=== PATIENT | female | born 1980 | race Caucasian/White ===

== ENCOUNTER 2021-07-14 11:11 | Inpatient (IN) | payer OTHER ==
[2021-07-14] MEDS ORDERED: ACETAMINOPHEN 325 MG TABLET (FP) PO PRN ×2 (12:09)
[2021-07-14] MEDS ORDERED: chlordiazePOXIDE HCL 25 MG CAPSULE PO PRN (12:09)
[2021-07-14] MEDS ORDERED: DICYCLOMINE HCL 10 MG CAPSULE PO PRN (12:09)
[2021-07-14] MEDS ORDERED: IBUPROFEN 400 MG TABLET (FP) PO PRN (12:09)
[2021-07-14] MEDS ORDERED: MAGNESIUM CITRATE 300 ML BOTTLE PO PRN (12:09)
[2021-07-14] MEDS ORDERED: MAG HYDROX/AL HYDROX/SIMETH 30 ML UNIT-DOSE CUP PO PRN (12:09)
[2021-07-14] MEDS ORDERED: LOPERAMIDE HCL 2 MG CAPSULE PO PRN (12:09)
[2021-07-14] MEDS ORDERED: BENZOCAINE/MENTHOL (CHLORASEPTIC ) LOZENGE MM PRN (12:09)
[2021-07-14] MEDS ORDERED: NICOTINE 10 MG CARTRIDGE (INHALER) IH PRN (12:09)
[2021-07-14] MEDS ORDERED: ONDANSETRON *ODT* 4 MG TABLET SL PRN (12:09)
[2021-07-14] MEDS ORDERED: MAGNESIUM HYDROX 2400MG/30ML ORAL SUSPENSION 30 ML CUP PO PRN (12:09)
[2021-07-14] MEDS ORDERED: BISMUTH SUBSALICYLATE 524 MG/30 ML PO PRN (12:09)
[2021-07-14 13:38] VITALS: BMI 40.7
[2021-07-14] MEDS: NICOTINE 21 MG/24 HOURS TOPICAL PATCH TD SCH (14:42)
[2021-07-14] MEDS: hydrOXYzine PAMOATE 25 MG CAPSULE (FP) PO SCH ×3 (14:45→22:28)
[2021-07-14] MEDS: PRENATAL VITAMINS W/ FOLIC ACID TABLET (FP) PO SCH (14:49)
[2021-07-14] MEDS: chlordiazePOXIDE HCL 25 MG CAPSULE PO SCH ×2 (17:34→22:38)
[2021-07-14 19:39] LABS: ALBUMIN 3.5 g/dl (3.4-5.0); BLOOD UREA NITROGEN 8.3 mg/dL (7-18); CALCIUM 8.9 mg/dL (8.5-10.1)
[2021-07-14 19:43] LABS: HEMATOCRIT 39.1 % (32.4-45.2); HEMOGLOBIN 12.7 GM/dL (10.7-15.3); MCH 26.8 pg (25.7-33.7); MCHC 32.4 g/dl (32.0-36.0); MEAN CELL VOLUME 82.7 fl (80-96); MEAN PLT VOLUME 8.6 fl (7.5-11.1); PLATELET COUNT 274 10^3/uL (134-434); RBC 4.72 M/mm3 (3.60-5.2); RDW 15.4 % (11.6-15.6); WHITE BLOOD COUNT 8.1 K/mm3 (4.0-10.0)
[2021-07-14 19:44] LABS: BILIRUBIN,TOTAL 0.4 mg/dL (0.2-1)
[2021-07-14 19:45] LABS: TOT PROT 6.9 g/dl (6.4-8.2)
[2021-07-14] MEDS: MELATONIN 5 MG TABLETS PO SCH (22:28)
[2021-07-14] MEDS: THIAMINE HCL 100 MG TABLET (FP) PO SCH (22:28)
[2021-07-15] MEDS: chlordiazePOXIDE HCL 25 MG CAPSULE PO SCH ×4 (06:30→22:12)
[2021-07-15] MEDS: hydrOXYzine PAMOATE 25 MG CAPSULE (FP) PO SCH ×5 (06:30→22:12)
[2021-07-15] MEDS: PRENATAL VITAMINS W/ FOLIC ACID TABLET (FP) PO SCH (11:47)
[2021-07-15] MEDS: NICOTINE 21 MG/24 HOURS TOPICAL PATCH TD SCH (11:47)
[2021-07-15] MEDS: QUEtiapine FUMARATE 50 MG TABLET PO SCH ×2 (14:02→22:12)
[2021-07-15] MEDS ORDERED: POTASSIUM CHLORIDE ORAL LIQUID 20 MEQ/15 ML PO ONE (19:38)
[2021-07-15] MEDS: MELATONIN 5 MG TABLETS PO SCH (22:12)
[2021-07-15] MEDS: THIAMINE HCL 100 MG TABLET (FP) PO SCH (22:12)
[2021-07-15] MEDS: POTASSIUM CHLORIDE ORAL LIQUID 20 MEQ/15 ML PO SCH (23:52)
[2021-07-16] MEDS: chlordiazePOXIDE HCL 25 MG CAPSULE PO SCH ×4 (07:27→22:58)
[2021-07-16] MEDS: hydrOXYzine PAMOATE 25 MG CAPSULE (FP) PO SCH ×5 (07:27→22:34)
[2021-07-16 08:09] LABS: SARS-CoV-2 NAA Not Detected (Not Detected)
[2021-07-16] MEDS: QUEtiapine FUMARATE 50 MG TABLET PO SCH ×2 (10:49→22:34)
[2021-07-16] MEDS: SERTRALINE HCL 50 MG TABLET (FP) PO SCH (10:49)
[2021-07-16] MEDS: PRENATAL VITAMINS W/ FOLIC ACID TABLET (FP) PO SCH (10:49)
[2021-07-16] MEDS: POTASSIUM CHLORIDE ORAL LIQUID 20 MEQ/15 ML PO SCH ×2 (10:52→22:33)
[2021-07-16] MEDS: NICOTINE 21 MG/24 HOURS TOPICAL PATCH TD SCH (10:52)
[2021-07-16] MEDS ORDERED: BENZOCAINE 20 % GEL TUBE MM PRN (14:30)
[2021-07-16] MEDS: METHOCARBAMOL 500 MG TABLET PO PRN (22:34)
[2021-07-16] MEDS: MELATONIN 5 MG TABLETS PO SCH (22:34)
[2021-07-16] MEDS: THIAMINE HCL 100 MG TABLET (FP) PO SCH (22:34)
[2021-07-17] MEDS ORDERED: chlordiazePOXIDE HCL 10 MG CAPSULE PO PRN
[2021-07-17] MEDS: hydrOXYzine PAMOATE 25 MG CAPSULE (FP) PO SCH ×2 (06:35→10:31)
[2021-07-17] MEDS: chlordiazePOXIDE HCL 10 MG CAPSULE PO SCH ×2 (06:36→10:33)
[2021-07-17] MEDS: METHOCARBAMOL 500 MG TABLET PO PRN (06:38)
[2021-07-17 08:47] VITALS: TEMP 98
[2021-07-17] MEDS: SERTRALINE HCL 50 MG TABLET (FP) PO SCH (10:31)
[2021-07-17] MEDS: QUEtiapine FUMARATE 50 MG TABLET PO SCH (10:31)
[2021-07-17] MEDS: PRENATAL VITAMINS W/ FOLIC ACID TABLET (FP) PO SCH (10:31)
[2021-07-17] MEDS: NICOTINE 21 MG/24 HOURS TOPICAL PATCH TD SCH (10:32)
[2021-07-17 10:41] VITALS: BP 111/82; PULSE 95
[2021-07-18] MEDS ORDERED: chlordiazePOXIDE HCL 10 MG CAPSULE PO SCH (05:00)
[2021-07-19] MEDS ORDERED: chlordiazePOXIDE HCL 10 MG CAPSULE PO ONE (05:00)
== END 2021-07-17 12:39 | disposition other institution (70) | DRG 774 ==
LOC: YASAS 11:11 → Y3N 14:17
PROVIDERS: ADMIT Allergy & Immunology; ATTEND Allergy & Immunology
PROC: HZ2ZZZZ Detoxification Services for Substance Abuse Treatment (ICD-10-PCS; principal; 2021-07-14)
DX: F10.230 Alcohol dependence with withdrawal, uncomplicated (principal); F14.20 Cocaine dependence, uncomplicated; F12.20 Cannabis dependence, uncomplicated; F17.210 Nicotine dependence, cigarettes, uncomplicated; F19.24 Other psychoactive substance dependence with psychoactive substance-induced mood disorder; F31.9 Bipolar disorder, unspecified; F43.10 Post-traumatic stress disorder, unspecified; E66.01 Morbid (severe) obesity due to excess calories; Z68.41 Body mass index [BMI] 40.0-44.9, adult; Z91.51 Personal history of suicidal behavior; Z91.19 Patient's noncompliance with other medical treatment and regimen
CPT/HCPCS: 36415; 80053; 81025; 82947; 84132; 85027; 86780; 87811; C9803-CS; U0003; U0005

== ENCOUNTER 2021-07-17 13:00 | Inpatient (IN) | payer OTHER ==
[2021-07-17] MEDS ORDERED: BENZOCAINE/MENTHOL (CHLORASEPTIC ) LOZENGE MM PRN (14:28)
[2021-07-17] MEDS ORDERED: guaiFENesin 200 MG/10 ML 10 ML UNIT-DOSE CUPS PO PRN (14:28)
[2021-07-17] MEDS ORDERED: LOPERAMIDE HCL 2 MG CAPSULE PO PRN (14:28)
[2021-07-17] MEDS ORDERED: MAGNESIUM CITRATE 300 ML BOTTLE PO PRN (14:28)
[2021-07-17] MEDS ORDERED: MAG HYDROX/AL HYDROX/SIMETH 30 ML UNIT-DOSE CUP PO PRN (14:28)
[2021-07-17] MEDS ORDERED: MAGNESIUM HYDROX 2400MG/30ML ORAL SUSPENSION 30 ML CUP PO PRN (14:28)
[2021-07-17] MEDS ORDERED: NICOTINE 10 MG CARTRIDGE (INHALER) IH PRN (14:28)
[2021-07-17] MEDS ORDERED: P-EPHED 60MG/TRIPROLIDI 2.5MG TABLET PO PRN (14:28)
[2021-07-17] MEDS: MELATONIN 5 MG TABLETS PO SCH (21:16)
[2021-07-17] MEDS: QUEtiapine FUMARATE 50 MG TABLET PO SCH (21:16)
[2021-07-17] MEDS: THIAMINE HCL 100 MG TABLET (FP) PO SCH (21:16)
[2021-07-17] MEDS: hydrOXYzine PAMOATE 25 MG CAPSULE (FP) PO PRN (21:18)
[2021-07-18] MEDS: hydrOXYzine PAMOATE 25 MG CAPSULE (FP) PO PRN (10:48)
[2021-07-18] MEDS: NICOTINE 7 MG/24 HOURS TOPICAL PATCH TD SCH (10:48)
[2021-07-18] MEDS: QUEtiapine FUMARATE 50 MG TABLET PO SCH ×2 (10:48→21:58)
[2021-07-18] MEDS: SERTRALINE HCL 50 MG TABLET (FP) PO SCH (10:48)
[2021-07-18] MEDS: PRENATAL VITAMINS W/ FOLIC ACID TABLET (FP) PO SCH (10:48)
[2021-07-18 14:39] LABS: HIV INTERPRETATION NEGATIVE (NEGATIVE)
[2021-07-18] MEDS: THIAMINE HCL 100 MG TABLET (FP) PO SCH (21:58)
[2021-07-18] MEDS: MELATONIN 5 MG TABLETS PO SCH (21:58)
[2021-07-18] MEDS: hydrOXYzine PAMOATE 50 MG CAPSULE (FP) PO PRN (22:00)
[2021-07-19] MEDS: NICOTINE 7 MG/24 HOURS TOPICAL PATCH TD SCH (10:12)
[2021-07-19] MEDS: PRENATAL VITAMINS W/ FOLIC ACID TABLET (FP) PO SCH (10:13)
[2021-07-19] MEDS: QUEtiapine FUMARATE 50 MG TABLET PO SCH ×2 (10:13→21:53)
[2021-07-19] MEDS: SERTRALINE HCL 50 MG TABLET (FP) PO SCH (10:13)
[2021-07-19] MEDS: hydrOXYzine PAMOATE 50 MG CAPSULE (FP) PO PRN ×3 (10:14→21:54)
[2021-07-19] MEDS: THIAMINE HCL 100 MG TABLET (FP) PO SCH (21:53)
[2021-07-19] MEDS: MELATONIN 5 MG TABLETS PO SCH (21:53)
[2021-07-20] MEDS: NICOTINE 7 MG/24 HOURS TOPICAL PATCH TD SCH (10:13)
[2021-07-20] MEDS: QUEtiapine FUMARATE 50 MG TABLET PO SCH ×2 (10:13→21:58)
[2021-07-20] MEDS: PRENATAL VITAMINS W/ FOLIC ACID TABLET (FP) PO SCH (10:13)
[2021-07-20] MEDS: SERTRALINE HCL 50 MG TABLET (FP) PO SCH (10:13)
[2021-07-20] MEDS: hydrOXYzine PAMOATE 50 MG CAPSULE (FP) PO PRN ×2 (10:13→21:58)
[2021-07-20] MEDS: MELATONIN 5 MG TABLETS PO SCH (21:58)
[2021-07-20] MEDS: THIAMINE HCL 100 MG TABLET (FP) PO SCH (21:58)
[2021-07-21] MEDS: IBUPROFEN 400 MG TABLET (FP) PO PRN ×3 (07:32→18:10)
[2021-07-21] MEDS: QUEtiapine FUMARATE 50 MG TABLET PO SCH ×2 (10:38→21:20)
[2021-07-21] MEDS: SERTRALINE HCL 50 MG TABLET (FP) PO SCH (10:38)
[2021-07-21] MEDS: PRENATAL VITAMINS W/ FOLIC ACID TABLET (FP) PO SCH (10:38)
[2021-07-21] MEDS: NICOTINE 7 MG/24 HOURS TOPICAL PATCH TD SCH (10:38)
[2021-07-21] MEDS: ACETAMINOPHEN 325 MG TABLET (FP) PO PRN (10:39)
[2021-07-21] MEDS: hydrOXYzine PAMOATE 50 MG CAPSULE (FP) PO PRN ×2 (10:39→21:21)
[2021-07-21] MEDS: THIAMINE HCL 100 MG TABLET (FP) PO SCH (21:20)
[2021-07-21] MEDS: MELATONIN 5 MG TABLETS PO SCH (21:20)
[2021-07-22 08:33] LABS: SARS-CoV-2 NAA Not Detected
[2021-07-22] MEDS: NICOTINE 7 MG/24 HOURS TOPICAL PATCH TD SCH (10:26)
[2021-07-22] MEDS: IBUPROFEN 400 MG TABLET (FP) PO PRN ×2 (10:27→20:25)
[2021-07-22] MEDS: SERTRALINE HCL 50 MG TABLET (FP) PO SCH (10:27)
[2021-07-22] MEDS: QUEtiapine FUMARATE 50 MG TABLET PO SCH ×2 (10:27→21:31)
[2021-07-22] MEDS: PRENATAL VITAMINS W/ FOLIC ACID TABLET (FP) PO SCH (10:27)
[2021-07-22] MEDS ORDERED: AMOXICILLIN 500 MG CAPSULE (FP) PO ONE (10:47)
[2021-07-22] MEDS: LIDOCAINE VISCOUS 2% ORAL/TOP 15 ML UNIT-DOSE CUP MM PRN (11:23)
[2021-07-22] MEDS: AMOXICILLIN 500 MG CAPSULE (FP) PO SCH ×2 (14:22→21:31)
[2021-07-22] MEDS: THIAMINE HCL 100 MG TABLET (FP) PO SCH (21:31)
[2021-07-22] MEDS: MELATONIN 5 MG TABLETS PO SCH (21:31)
[2021-07-22] MEDS: hydrOXYzine PAMOATE 50 MG CAPSULE (FP) PO PRN (21:31)
[2021-07-23] MEDS: AMOXICILLIN 500 MG CAPSULE (FP) PO SCH ×3 (08:08→21:10)
[2021-07-23] MEDS: PRENATAL VITAMINS W/ FOLIC ACID TABLET (FP) PO SCH (10:28)
[2021-07-23] MEDS: SERTRALINE HCL 50 MG TABLET (FP) PO SCH (10:29)
[2021-07-23] MEDS: QUEtiapine FUMARATE 50 MG TABLET PO SCH ×2 (10:29→21:10)
[2021-07-23] MEDS: NICOTINE 7 MG/24 HOURS TOPICAL PATCH TD SCH (10:29)
[2021-07-23] MEDS: IBUPROFEN 400 MG TABLET (FP) PO PRN ×2 (10:30→20:04)
[2021-07-23] MEDS: LIDOCAINE VISCOUS 2% ORAL/TOP 15 ML UNIT-DOSE CUP MM PRN (12:44)
[2021-07-23] MEDS: MELATONIN 5 MG TABLETS PO SCH (21:10)
[2021-07-23] MEDS: THIAMINE HCL 100 MG TABLET (FP) PO SCH (21:10)
[2021-07-24] MEDS: AMOXICILLIN 500 MG CAPSULE (FP) PO SCH ×3 (06:59→21:13)
[2021-07-24] MEDS: NICOTINE 7 MG/24 HOURS TOPICAL PATCH TD SCH (10:55)
[2021-07-24] MEDS: PRENATAL VITAMINS W/ FOLIC ACID TABLET (FP) PO SCH (10:55)
[2021-07-24] MEDS: hydrOXYzine PAMOATE 50 MG CAPSULE (FP) PO PRN (10:56)
[2021-07-24] MEDS: QUEtiapine FUMARATE 50 MG TABLET PO SCH ×2 (10:56→21:13)
[2021-07-24] MEDS: SERTRALINE HCL 50 MG TABLET (FP) PO SCH (10:56)
[2021-07-24] MEDS: IBUPROFEN 400 MG TABLET (FP) PO PRN ×2 (10:57→19:03)
[2021-07-24] MEDS: MELATONIN 5 MG TABLETS PO SCH (21:13)
[2021-07-24] MEDS: THIAMINE HCL 100 MG TABLET (FP) PO SCH (21:13)
[2021-07-25] MEDS: AMOXICILLIN 500 MG CAPSULE (FP) PO SCH ×3 (08:19→21:24)
[2021-07-25] MEDS: IBUPROFEN 400 MG TABLET (FP) PO PRN ×2 (08:20→21:27)
[2021-07-25] MEDS: QUEtiapine FUMARATE 50 MG TABLET PO SCH ×2 (10:38→21:26)
[2021-07-25] MEDS: SERTRALINE HCL 50 MG TABLET (FP) PO SCH (10:38)
[2021-07-25] MEDS: NICOTINE 7 MG/24 HOURS TOPICAL PATCH TD SCH (10:40)
[2021-07-25] MEDS: ACETAMINOPHEN 325 MG TABLET (FP) PO PRN (10:40)
[2021-07-25] MEDS: PRENATAL VITAMINS W/ FOLIC ACID TABLET (FP) PO SCH (10:40)
[2021-07-25] MEDS: BENZOCAINE 20 % GEL TUBE MM PRN (20:08)
[2021-07-25] MEDS: THIAMINE HCL 100 MG TABLET (FP) PO SCH (21:24)
[2021-07-25] MEDS: MELATONIN 5 MG TABLETS PO SCH (21:24)
[2021-07-25] MEDS: hydrOXYzine PAMOATE 50 MG CAPSULE (FP) PO PRN (21:26)
[2021-07-26] MEDS: AMOXICILLIN 500 MG CAPSULE (FP) PO SCH ×3 (07:05→21:02)
[2021-07-26] MEDS: PRENATAL VITAMINS W/ FOLIC ACID TABLET (FP) PO SCH (10:57)
[2021-07-26] MEDS: SERTRALINE HCL 50 MG TABLET (FP) PO SCH (10:57)
[2021-07-26] MEDS: NICOTINE 7 MG/24 HOURS TOPICAL PATCH TD SCH (10:57)
[2021-07-26] MEDS: QUEtiapine FUMARATE 50 MG TABLET PO SCH ×2 (10:57→21:03)
[2021-07-26] MEDS: hydrOXYzine PAMOATE 50 MG CAPSULE (FP) PO PRN ×2 (10:58→21:03)
[2021-07-26] MEDS: IBUPROFEN 400 MG TABLET (FP) PO PRN ×2 (10:59→19:50)
[2021-07-26] MEDS ORDERED: hydrOXYzine PAMOATE 25 MG CAPSULE (FP) PO ONE (19:37)
[2021-07-26] MEDS: MELATONIN 5 MG TABLETS PO SCH (21:03)
[2021-07-26] MEDS: THIAMINE HCL 100 MG TABLET (FP) PO SCH (21:03)
[2021-07-27] MEDS: AMOXICILLIN 500 MG CAPSULE (FP) PO SCH ×2 (06:25→13:20)
[2021-07-27] MEDS ORDERED: hydrOXYzine PAMOATE 25 MG CAPSULE (FP) PO ONE (10:57)
[2021-07-27] MEDS: PRENATAL VITAMINS W/ FOLIC ACID TABLET (FP) PO SCH (10:58)
[2021-07-27] MEDS: hydrOXYzine PAMOATE 50 MG CAPSULE (FP) PO PRN ×2 (10:58→21:11)
[2021-07-27] MEDS: SERTRALINE HCL 50 MG TABLET (FP) PO SCH (10:58)
[2021-07-27] MEDS: QUEtiapine FUMARATE 50 MG TABLET PO SCH ×2 (10:58→21:10)
[2021-07-27] MEDS: NICOTINE 7 MG/24 HOURS TOPICAL PATCH TD SCH (10:59)
[2021-07-27] MEDS: IBUPROFEN 400 MG TABLET (FP) PO PRN ×2 (10:59→18:31)
[2021-07-27] MEDS: THIAMINE HCL 100 MG TABLET (FP) PO SCH (21:10)
[2021-07-27] MEDS: MELATONIN 5 MG TABLETS PO SCH (21:10)
[2021-07-28] MEDS: AMOXICILLIN 500 MG CAPSULE (FP) PO SCH ×4 (00:29→21:27)
[2021-07-28] MEDS ORDERED: hydrOXYzine PAMOATE 25 MG CAPSULE (FP) PO ONE (09:16)
[2021-07-28] MEDS: SERTRALINE HCL 50 MG TABLET (FP) PO SCH (11:09)
[2021-07-28] MEDS: PRENATAL VITAMINS W/ FOLIC ACID TABLET (FP) PO SCH (11:09)
[2021-07-28] MEDS: IBUPROFEN 400 MG TABLET (FP) PO PRN ×2 (11:10→21:31)
[2021-07-28] MEDS: NICOTINE 7 MG/24 HOURS TOPICAL PATCH TD SCH (11:10)
[2021-07-28] MEDS: QUEtiapine FUMARATE 50 MG TABLET PO SCH ×2 (11:12→21:27)
[2021-07-28] MEDS: MELATONIN 5 MG TABLETS PO SCH (21:27)
[2021-07-28] MEDS: THIAMINE HCL 100 MG TABLET (FP) PO SCH (21:27)
[2021-07-28] MEDS: hydrOXYzine PAMOATE 50 MG CAPSULE (FP) PO PRN (21:27)
[2021-07-29] MEDS: AMOXICILLIN 500 MG CAPSULE (FP) PO SCH ×3 (07:13→21:18)
[2021-07-29] MEDS: QUEtiapine FUMARATE 50 MG TABLET PO SCH ×2 (10:46→21:18)
[2021-07-29] MEDS: PRENATAL VITAMINS W/ FOLIC ACID TABLET (FP) PO SCH (10:46)
[2021-07-29] MEDS: NICOTINE 7 MG/24 HOURS TOPICAL PATCH TD SCH (10:46)
[2021-07-29] MEDS: SERTRALINE HCL 50 MG TABLET (FP) PO SCH (10:46)
[2021-07-29] MEDS: hydrOXYzine PAMOATE 50 MG CAPSULE (FP) PO PRN ×2 (10:46→21:18)
[2021-07-29] MEDS: IBUPROFEN 400 MG TABLET (FP) PO PRN ×2 (10:47→21:18)
[2021-07-29] MEDS: MELATONIN 5 MG TABLETS PO SCH (21:18)
[2021-07-29] MEDS: THIAMINE HCL 100 MG TABLET (FP) PO SCH (21:19)
[2021-07-30] MEDS: AMOXICILLIN 500 MG CAPSULE (FP) PO SCH ×3 (06:59→21:13)
[2021-07-30] MEDS: IBUPROFEN 400 MG TABLET (FP) PO PRN ×2 (10:39→21:16)
[2021-07-30] MEDS: PRENATAL VITAMINS W/ FOLIC ACID TABLET (FP) PO SCH (10:40)
[2021-07-30] MEDS: SERTRALINE HCL 50 MG TABLET (FP) PO SCH (10:40)
[2021-07-30] MEDS: QUEtiapine FUMARATE 50 MG TABLET PO SCH ×2 (10:40→21:13)
[2021-07-30] MEDS: NICOTINE 7 MG/24 HOURS TOPICAL PATCH TD SCH (10:40)
[2021-07-30] MEDS: hydrOXYzine PAMOATE 50 MG CAPSULE (FP) PO PRN ×2 (10:41→21:13)
[2021-07-30] MEDS: LACTOBACILLUS ACIDOPHILUS 1 TABLET PO SCH (12:41)
[2021-07-30 17:27] LABS: EPI CELLS >36 /uL (0-25.1); HYALINE CASTS 17 /uL (0-3.1); URINE APPEARANCE TURBID; URINE BACTERIA 731 /uL (0-1359); URINE BILIRUBIN NEGATIVE (NEGATIVE); URINE COLOR YELLOW; URINE GLUCOSE (UA) NEGATIVE (NEGATIVE); URINE KETONE NEGATIVE (NEGATIVE); URINE LEUK ESTERASE 3+ (NEGATIVE); URINE NITRITE NEGATIVE (NEGATIVE); URINE PROTEIN TRACE (NEGATIVE); URINE RBC 20 /uL (0-23.9); URINE UROBILINOGEN 0.2 mg/dL (0.2-1.0); URINE WBC 390 /uL (0-25.8)
[2021-07-30 17:57] LABS: YEAST PRESENT (NEGATIVE)
[2021-07-30] MEDS: MELATONIN 5 MG TABLETS PO SCH (21:13)
[2021-07-30] MEDS: THIAMINE HCL 100 MG TABLET (FP) PO SCH (21:17)
[2021-07-31] MEDS: LACTOBACILLUS ACIDOPHILUS 1 TABLET PO SCH (07:03)
[2021-07-31] MEDS: AMOXICILLIN 500 MG CAPSULE (FP) PO SCH ×2 (07:05→15:52)
[2021-07-31] MEDS: PRENATAL VITAMINS W/ FOLIC ACID TABLET (FP) PO SCH (10:30)
[2021-07-31] MEDS: hydrOXYzine PAMOATE 50 MG CAPSULE (FP) PO PRN ×2 (10:30→21:05)
[2021-07-31] MEDS: QUEtiapine FUMARATE 50 MG TABLET PO SCH ×2 (10:31→21:06)
[2021-07-31] MEDS: SERTRALINE HCL 50 MG TABLET (FP) PO SCH (10:31)
[2021-07-31] MEDS: IBUPROFEN 400 MG TABLET (FP) PO PRN ×2 (10:31→21:06)
[2021-07-31] MEDS: NICOTINE 7 MG/24 HOURS TOPICAL PATCH TD SCH (10:31)
[2021-07-31] MEDS ORDERED: MICONAZOLE NITRATE 14 GM/TUBE TUBE TP SCH (10:45)
[2021-07-31] MEDS: MELATONIN 5 MG TABLETS PO SCH (21:05)
[2021-07-31] MEDS: THIAMINE HCL 100 MG TABLET (FP) PO SCH (21:06)
[2021-07-31] MEDS: MICONAZOLE NITRATE 2% VAGINAL CREAM 45 GM TUBE VG SCH (21:07)
[2021-08-01] MEDS: LACTOBACILLUS ACIDOPHILUS 1 TABLET PO SCH (07:38)
[2021-08-01] MEDS: NICOTINE 7 MG/24 HOURS TOPICAL PATCH TD SCH (10:42)
[2021-08-01] MEDS: QUEtiapine FUMARATE 50 MG TABLET PO SCH ×2 (10:42→21:12)
[2021-08-01] MEDS: hydrOXYzine PAMOATE 50 MG CAPSULE (FP) PO PRN ×2 (10:42→21:14)
[2021-08-01] MEDS: PRENATAL VITAMINS W/ FOLIC ACID TABLET (FP) PO SCH (10:42)
[2021-08-01] MEDS: SERTRALINE HCL 50 MG TABLET (FP) PO SCH (10:43)
[2021-08-01] MEDS: MICONAZOLE NITRATE 2% VAGINAL CREAM 45 GM TUBE VG SCH (21:12)
[2021-08-01] MEDS: MELATONIN 5 MG TABLETS PO SCH (21:12)
[2021-08-01] MEDS: THIAMINE HCL 100 MG TABLET (FP) PO SCH (21:12)
[2021-08-02] MEDS: LACTOBACILLUS ACIDOPHILUS 1 TABLET PO SCH (06:59)
[2021-08-02] MEDS: SERTRALINE HCL 50 MG TABLET (FP) PO SCH (10:52)
[2021-08-02] MEDS: QUEtiapine FUMARATE 50 MG TABLET PO SCH ×2 (10:52→22:03)
[2021-08-02] MEDS: NICOTINE 7 MG/24 HOURS TOPICAL PATCH TD SCH (10:52)
[2021-08-02] MEDS: PRENATAL VITAMINS W/ FOLIC ACID TABLET (FP) PO SCH (10:52)
[2021-08-02] MEDS: hydrOXYzine PAMOATE 50 MG CAPSULE (FP) PO PRN ×2 (10:53→22:06)
[2021-08-02] MEDS: IBUPROFEN 400 MG TABLET (FP) PO PRN ×2 (10:53→22:05)
[2021-08-02] MEDS: MELATONIN 5 MG TABLETS PO SCH (22:03)
[2021-08-02] MEDS: THIAMINE HCL 100 MG TABLET (FP) PO SCH (22:03)
[2021-08-02] MEDS: MICONAZOLE NITRATE 2% VAGINAL CREAM 45 GM TUBE VG SCH (22:04)
[2021-08-03] MEDS: LACTOBACILLUS ACIDOPHILUS 1 TABLET PO SCH (07:07)
[2021-08-03] MEDS: hydrOXYzine PAMOATE 50 MG CAPSULE (FP) PO PRN (10:44)
[2021-08-03] MEDS: NICOTINE 7 MG/24 HOURS TOPICAL PATCH TD SCH (10:44)
[2021-08-03] MEDS: SERTRALINE HCL 50 MG TABLET (FP) PO SCH (10:44)
[2021-08-03] MEDS: PRENATAL VITAMINS W/ FOLIC ACID TABLET (FP) PO SCH (10:44)
[2021-08-03] MEDS: IBUPROFEN 400 MG TABLET (FP) PO PRN ×2 (10:44→19:53)
[2021-08-03] MEDS: QUEtiapine FUMARATE 50 MG TABLET PO SCH ×2 (10:44→21:04)
[2021-08-03] MEDS: SULFAMETHOXAZOLE/TRIMETHOPRIM 800MG/160MG D.S. TABLET PO SCH ×2 (14:08→21:04)
[2021-08-03] MEDS: BENZOCAINE 20 % GEL TUBE MM PRN (19:54)
[2021-08-03] MEDS ORDERED: hydrOXYzine PAMOATE 25 MG CAPSULE (FP) PO ONE (20:28)
[2021-08-03] MEDS: MELATONIN 5 MG TABLETS PO SCH (21:03)
[2021-08-03] MEDS: MICONAZOLE NITRATE 2% VAGINAL CREAM 45 GM TUBE VG SCH (21:04)
[2021-08-03] MEDS: THIAMINE HCL 100 MG TABLET (FP) PO SCH (21:04)
[2021-08-03] MEDS: ACETAMINOPHEN 325 MG TABLET (FP) PO PRN (21:05)
[2021-08-04] MEDS: LACTOBACILLUS ACIDOPHILUS 1 TABLET PO SCH (08:13)
[2021-08-04] MEDS: QUEtiapine FUMARATE 50 MG TABLET PO SCH ×2 (11:11→21:05)
[2021-08-04] MEDS: SERTRALINE HCL 50 MG TABLET (FP) PO SCH (11:11)
[2021-08-04] MEDS: PRENATAL VITAMINS W/ FOLIC ACID TABLET (FP) PO SCH (11:11)
[2021-08-04] MEDS: SULFAMETHOXAZOLE/TRIMETHOPRIM 800MG/160MG D.S. TABLET PO SCH ×2 (11:11→21:05)
[2021-08-04] MEDS ORDERED: hydrOXYzine PAMOATE 25 MG CAPSULE (FP) PO ONE (11:12)
[2021-08-04] MEDS: NICOTINE 7 MG/24 HOURS TOPICAL PATCH TD SCH (11:12)
[2021-08-04] MEDS: IBUPROFEN 400 MG TABLET (FP) PO PRN (11:13)
[2021-08-04] MEDS: hydrOXYzine PAMOATE 50 MG CAPSULE (FP) PO PRN ×2 (11:13→21:05)
[2021-08-04] MEDS ORDERED: QUEtiapine FUMARATE 25 MG TABLET ONE (20:48)
[2021-08-04] MEDS: MICONAZOLE NITRATE 2% VAGINAL CREAM 45 GM TUBE VG SCH (21:04)
[2021-08-04] MEDS: MELATONIN 5 MG TABLETS PO SCH (21:05)
[2021-08-04] MEDS: THIAMINE HCL 100 MG TABLET (FP) PO SCH (21:05)
[2021-08-05] MEDS: LACTOBACILLUS ACIDOPHILUS 1 TABLET PO SCH (07:23)
[2021-08-05] MEDS: IBUPROFEN 400 MG TABLET (FP) PO PRN ×2 (08:43→17:58)
[2021-08-05] MEDS: PRENATAL VITAMINS W/ FOLIC ACID TABLET (FP) PO SCH (11:08)
[2021-08-05] MEDS: SULFAMETHOXAZOLE/TRIMETHOPRIM 800MG/160MG D.S. TABLET PO SCH ×2 (11:09→21:11)
[2021-08-05] MEDS: SERTRALINE HCL 50 MG TABLET (FP) PO SCH (11:09)
[2021-08-05] MEDS: NICOTINE 7 MG/24 HOURS TOPICAL PATCH TD SCH (11:09)
[2021-08-05] MEDS: QUEtiapine FUMARATE 50 MG TABLET PO SCH ×2 (11:55→21:11)
[2021-08-05] MEDS: BENZOCAINE 20 % GEL TUBE MM PRN (19:28)
[2021-08-05] MEDS: hydrOXYzine PAMOATE 50 MG CAPSULE (FP) PO PRN (21:11)
[2021-08-05] MEDS: THIAMINE HCL 100 MG TABLET (FP) PO SCH (21:11)
[2021-08-05] MEDS: MELATONIN 5 MG TABLETS PO SCH (21:12)
[2021-08-05] MEDS: MICONAZOLE NITRATE 2% VAGINAL CREAM 45 GM TUBE VG SCH (21:14)
[2021-08-06] MEDS: LACTOBACILLUS ACIDOPHILUS 1 TABLET PO SCH (07:02)
[2021-08-06] MEDS: PRENATAL VITAMINS W/ FOLIC ACID TABLET (FP) PO SCH (10:51)
[2021-08-06] MEDS: NICOTINE 7 MG/24 HOURS TOPICAL PATCH TD SCH (10:52)
[2021-08-06] MEDS: SERTRALINE HCL 50 MG TABLET (FP) PO SCH (10:52)
[2021-08-06] MEDS: SULFAMETHOXAZOLE/TRIMETHOPRIM 800MG/160MG D.S. TABLET PO SCH (10:52)
[2021-08-06] MEDS: QUEtiapine FUMARATE 50 MG TABLET PO SCH ×2 (10:52→21:05)
[2021-08-06] MEDS: hydrOXYzine PAMOATE 50 MG CAPSULE (FP) PO PRN ×2 (10:53→21:10)
[2021-08-06] MEDS: IBUPROFEN 400 MG TABLET (FP) PO PRN ×2 (10:53→21:08)
[2021-08-06] MEDS: MELATONIN 5 MG TABLETS PO SCH (21:05)
[2021-08-06] MEDS: MICONAZOLE NITRATE 2% VAGINAL CREAM 45 GM TUBE VG SCH (21:05)
[2021-08-06] MEDS: THIAMINE HCL 100 MG TABLET (FP) PO SCH (21:05)
[2021-08-07] MEDS: LACTOBACILLUS ACIDOPHILUS 1 TABLET PO SCH (07:00)
[2021-08-07] MEDS: NICOTINE 7 MG/24 HOURS TOPICAL PATCH TD SCH (09:51)
[2021-08-07] MEDS: SERTRALINE HCL 50 MG TABLET (FP) PO SCH (09:52)
[2021-08-07] MEDS: IBUPROFEN 400 MG TABLET (FP) PO PRN ×2 (09:52→21:08)
[2021-08-07] MEDS: PRENATAL VITAMINS W/ FOLIC ACID TABLET (FP) PO SCH (09:52)
[2021-08-07] MEDS: QUEtiapine FUMARATE 50 MG TABLET PO SCH ×2 (09:52→21:08)
[2021-08-07] MEDS: hydrOXYzine PAMOATE 50 MG CAPSULE (FP) PO PRN ×2 (09:52→21:08)
[2021-08-07] MEDS: BENZOCAINE 20 % GEL TUBE MM PRN (19:00)
[2021-08-07] MEDS: MELATONIN 5 MG TABLETS PO SCH (21:07)
[2021-08-07] MEDS: THIAMINE HCL 100 MG TABLET (FP) PO SCH (21:08)
[2021-08-08 07:29] VITALS: BP 113/74; PULSE 80; TEMP 97.7
[2021-08-08] MEDS: LACTOBACILLUS ACIDOPHILUS 1 TABLET PO SCH (08:33)
[2021-08-08] MEDS: IBUPROFEN 400 MG TABLET (FP) PO PRN (09:12)
[2021-08-08] MEDS: SERTRALINE HCL 50 MG TABLET (FP) PO SCH (09:12)
[2021-08-08] MEDS: hydrOXYzine PAMOATE 50 MG CAPSULE (FP) PO PRN (09:12)
[2021-08-08] MEDS: QUEtiapine FUMARATE 50 MG TABLET PO SCH (09:12)
[2021-08-08] MEDS: PRENATAL VITAMINS W/ FOLIC ACID TABLET (FP) PO SCH (09:12)
[2021-08-08] MEDS: NICOTINE 7 MG/24 HOURS TOPICAL PATCH TD SCH (09:13)
== END 2021-08-08 10:00 | disposition home or self-care (01) | DRG 772 ==
LOC: YASAS 13:00 → Y5N 13:03
PROVIDERS: ADMIT Allergy & Immunology; ATTEND Allergy & Immunology
PROC: HZ42ZZZ Group Counseling for Substance Abuse Treatment, Cognitive-Behavioral (ICD-10-PCS; principal; 2021-07-17)
DX: F10.20 Alcohol dependence, uncomplicated (principal); F14.20 Cocaine dependence, uncomplicated; F17.210 Nicotine dependence, cigarettes, uncomplicated; F19.24 Other psychoactive substance dependence with psychoactive substance-induced mood disorder; F31.9 Bipolar disorder, unspecified; F41.9 Anxiety disorder, unspecified; F43.10 Post-traumatic stress disorder, unspecified; G47.00 Insomnia, unspecified; N39.0 Urinary tract infection, site not specified; B96.1 Klebsiella pneumoniae [K. pneumoniae] as the cause of diseases classified elsewhere; E66.01 Morbid (severe) obesity due to excess calories; Z68.41 Body mass index [BMI] 40.0-44.9, adult; Z86.59 Personal history of other mental and behavioral disorders; Z91.51 Personal history of suicidal behavior; Z91.19 Patient's noncompliance with other medical treatment and regimen
CPT/HCPCS: 36415; 81003; 87077; 87086; 87186; 87389; C9803-CS; U0003; U0005

== ENCOUNTER 2021-10-22 14:48 | Inpatient (IN) | payer OTHER ==
[2021-10-22 16:04] VITALS: BMI 47.5
[2021-10-22] MEDS ORDERED: BENZOCAINE/MENTHOL (CHLORASEPTIC ) LOZENGE MM PRN (18:47)
[2021-10-22] MEDS ORDERED: ACETAMINOPHEN 325 MG TABLET (FP) PO PRN ×2 (18:47)
[2021-10-22] MEDS ORDERED: chlordiazePOXIDE HCL 25 MG CAPSULE PO PRN (18:47)
[2021-10-22] MEDS ORDERED: LOPERAMIDE HCL 2 MG CAPSULE PO PRN (18:47)
[2021-10-22] MEDS ORDERED: DICYCLOMINE HCL 10 MG CAPSULE PO PRN (18:47)
[2021-10-22] MEDS ORDERED: IBUPROFEN 400 MG TABLET (FP) PO PRN (18:47)
[2021-10-22] MEDS ORDERED: MAGNESIUM CITRATE 300 ML BOTTLE PO PRN (18:47)
[2021-10-22] MEDS ORDERED: IBUPROFEN 600 MG TABLET (FP) PO PRN (18:47)
[2021-10-22] MEDS ORDERED: NICOTINE 10 MG CARTRIDGE (INHALER) IH PRN (18:47)
[2021-10-22] MEDS ORDERED: MAG HYDROX/AL HYDROX/SIMETH 30 ML UNIT-DOSE CUP PO PRN (18:47)
[2021-10-22] MEDS ORDERED: ONDANSETRON *ODT* 4 MG TABLET SL PRN (18:47)
[2021-10-22] MEDS ORDERED: MAGNESIUM HYDROX 2400MG/30ML ORAL SUSPENSION 30 ML CUP PO PRN (18:47)
[2021-10-22] MEDS ORDERED: BISMUTH SUBSALICYLATE 524 MG/30 ML PO PRN (18:47)
[2021-10-22] MEDS: PRENATAL VITAMINS W/ FOLIC ACID TABLET (FP) PO SCH (20:16)
[2021-10-22] MEDS ORDERED: QUEtiapine FUMARATE 25 MG TABLET PO ONE (22:00)
[2021-10-22] MEDS: THIAMINE HCL 100 MG TABLET (FP) PO SCH (22:42)
[2021-10-22] MEDS: chlordiazePOXIDE HCL 25 MG CAPSULE PO SCH (22:42)
[2021-10-22] MEDS: MELATONIN 5 MG TABLETS PO SCH (22:43)
[2021-10-22] MEDS: hydrOXYzine PAMOATE 25 MG CAPSULE (FP) PO SCH (22:45)
[2021-10-23] MEDS: chlordiazePOXIDE HCL 25 MG CAPSULE PO SCH ×3 (05:17→17:10)
[2021-10-23] MEDS: hydrOXYzine PAMOATE 25 MG CAPSULE (FP) PO SCH ×3 (05:17→13:36)
[2021-10-23] MEDS: PRENATAL VITAMINS W/ FOLIC ACID TABLET (FP) PO SCH (12:48)
[2021-10-23 14:35] LABS: HEMATOCRIT 35.2 % (32.4-45.2); HEMOGLOBIN 11.7 GM/dL (10.7-15.3); MCH 27.3 pg (25.7-33.7); MCHC 33.4 g/dl (32.0-36.0); MEAN CELL VOLUME 81.6 fl (80-96); MEAN PLT VOLUME 8.1 fl (7.5-11.1); PLATELET COUNT 237 10^3/uL (134-434); RBC 4.31 M/mm3 (3.60-5.2); RDW 15.3 % (11.6-15.6); WHITE BLOOD COUNT 9.5 K/mm3 (4.0-10.0)
[2021-10-23 15:01] LABS: CALCIUM 8.4 mg/dL (8.5-10.1)
[2021-10-23 15:02] LABS: BLOOD UREA NITROGEN 14.9 mg/dL (7-18)
[2021-10-23 15:06] LABS: BILIRUBIN,TOTAL 0.5 mg/dL (0.2-1); TOT PROT 6.1 g/dl (6.4-8.2)
[2021-10-24] MEDS: MELATONIN 5 MG TABLETS PO SCH ×2 (00:07→21:46)
[2021-10-24] MEDS: THIAMINE HCL 100 MG TABLET (FP) PO SCH ×2 (00:09→21:46)
[2021-10-24] MEDS: hydrOXYzine PAMOATE 25 MG CAPSULE (FP) PO SCH ×6 (00:10→21:46)
[2021-10-24] MEDS: chlordiazePOXIDE HCL 25 MG CAPSULE PO SCH ×5 (00:11→22:34)
[2021-10-24] MEDS: METHOCARBAMOL 500 MG TABLET PO PRN ×2 (10:55→17:47)
[2021-10-24] MEDS: PRENATAL VITAMINS W/ FOLIC ACID TABLET (FP) PO SCH (10:55)
[2021-10-25] MEDS ORDERED: chlordiazePOXIDE HCL 10 MG CAPSULE PO PRN
[2021-10-25] MEDS: chlordiazePOXIDE HCL 10 MG CAPSULE PO SCH ×4 (05:44→22:10)
[2021-10-25] MEDS: hydrOXYzine PAMOATE 25 MG CAPSULE (FP) PO SCH ×5 (05:44→22:10)
[2021-10-25] MEDS: METHOCARBAMOL 500 MG TABLET PO PRN ×3 (05:45→22:11)
[2021-10-25] MEDS: PRENATAL VITAMINS W/ FOLIC ACID TABLET (FP) PO SCH (11:18)
[2021-10-25] MEDS ORDERED: SERTRALINE HCL 50 MG TABLET (FP) PO ONE (11:30)
[2021-10-25] MEDS ORDERED: QUEtiapine FUMARATE 50 MG TABLET PO ONE (11:30)
[2021-10-25] MEDS: QUEtiapine FUMARATE 50 MG TABLET PO SCH (22:10)
[2021-10-25] MEDS: MELATONIN 5 MG TABLETS PO SCH (22:10)
[2021-10-25] MEDS: THIAMINE HCL 100 MG TABLET (FP) PO SCH (22:10)
[2021-10-26] MEDS: hydrOXYzine PAMOATE 25 MG CAPSULE (FP) PO SCH ×5 (06:32→22:07)
[2021-10-26] MEDS: chlordiazePOXIDE HCL 10 MG CAPSULE PO SCH ×2 (06:33→17:41)
[2021-10-26] MEDS ORDERED: QUEtiapine FUMARATE 25 MG TABLET ONE ×2 (09:17→22:06)
[2021-10-26] MEDS: SERTRALINE HCL 50 MG TABLET (FP) PO SCH (10:27)
[2021-10-26] MEDS: PRENATAL VITAMINS W/ FOLIC ACID TABLET (FP) PO SCH (10:27)
[2021-10-26] MEDS: QUEtiapine FUMARATE 50 MG TABLET PO SCH ×2 (10:27→22:07)
[2021-10-26] MEDS: THIAMINE HCL 100 MG TABLET (FP) PO SCH (22:07)
[2021-10-26] MEDS: MELATONIN 5 MG TABLETS PO SCH (22:07)
[2021-10-26] MEDS: METHOCARBAMOL 500 MG TABLET PO PRN (22:08)
[2021-10-27] MEDS ORDERED: chlordiazePOXIDE HCL 10 MG CAPSULE PO ONE (05:00)
[2021-10-27] MEDS: hydrOXYzine PAMOATE 25 MG CAPSULE (FP) PO SCH ×5 (06:27→22:10)
[2021-10-27] MEDS: PRENATAL VITAMINS W/ FOLIC ACID TABLET (FP) PO SCH (12:20)
[2021-10-27] MEDS: SERTRALINE HCL 50 MG TABLET (FP) PO SCH (12:20)
[2021-10-27] MEDS: QUEtiapine FUMARATE 50 MG TABLET PO SCH ×2 (12:20→22:10)
[2021-10-27] MEDS: METHOCARBAMOL 500 MG TABLET PO PRN (14:33)
[2021-10-27 17:16] VITALS: RESP 18
[2021-10-27] MEDS: THIAMINE HCL 100 MG TABLET (FP) PO SCH (22:10)
[2021-10-27] MEDS: MELATONIN 5 MG TABLETS PO SCH (22:10)
[2021-10-28] MEDS: hydrOXYzine PAMOATE 25 MG CAPSULE (FP) PO SCH ×2 (05:41→10:35)
[2021-10-28] MEDS: METHOCARBAMOL 500 MG TABLET PO PRN (05:42)
[2021-10-28 06:05] VITALS: BP 113/72; PULSE 84; TEMP 97.6
[2021-10-28] MEDS: QUEtiapine FUMARATE 50 MG TABLET PO SCH (10:33)
[2021-10-28] MEDS: PRENATAL VITAMINS W/ FOLIC ACID TABLET (FP) PO SCH (10:33)
[2021-10-28] MEDS: SERTRALINE HCL 50 MG TABLET (FP) PO SCH (10:33)
== END 2021-10-28 10:57 | disposition home or self-care (01) | DRG 774 ==
LOC: YASAS 14:48 → Y6N 19:14
PROVIDERS: ADMIT Allergy & Immunology; ATTEND Surgery
PROC: HZ2ZZZZ Detoxification Services for Substance Abuse Treatment (ICD-10-PCS; principal; 2021-10-22)
DX: F10.230 Alcohol dependence with withdrawal, uncomplicated (principal); F14.20 Cocaine dependence, uncomplicated; F17.210 Nicotine dependence, cigarettes, uncomplicated; F34.1 Dysthymic disorder; E66.01 Morbid (severe) obesity due to excess calories; Z68.42 Body mass index [BMI] 45.0-49.9, adult; Z86.59 Personal history of other mental and behavioral disorders; Z56.0 Unemployment, unspecified
CPT/HCPCS: 36415; 80053; 81025; 85027; 86780; 87811; 93005; 93010; C9803-CS; U0003; U0005